=== PATIENT | female | born 1945 | race Asian ===

== ENCOUNTER → 2020-05-14 | Outpatient (CLI) | payer MEDICARE ==
[~2020-05-14] MED LIST: ASPI-515 PO; MULT-516 PO; NIACIN PO; OMEGA 3 PO; TRIAMTERENE PO
== END | disposition home or self-care (01) ==
LOC: CARD 14:24
PROVIDERS: ATTEND Family Medicine
DX: R06.02 Shortness of breath (principal)
CPT/HCPCS: 94060; 94726; 94729